=== PATIENT | female | born 1985 | race Asian ===

== ENCOUNTER 2019-06-05 06:51 | Emergency (ER) | payer OTHER ==
[~2019-06-05] VITALS: Ht 167.6 cm; Wt 68.0 kg
[2019-06-05 07:14] VITALS: TEMP 97.9
[2019-06-05 08:02] LABS: PLATELET COUNT 405 K/uL (152-353)
[2019-06-05 08:06] LABS: POTASSIUM 3.3 mmol/L (3.6-5.2)
[2019-06-05 09:00] VITALS: BP 148/94
== END 2019-06-05 09:02 | disposition home or self-care (01) ==
LOC: ED 06:51
PROVIDERS: Family Medicine
DX: D64.89 Other specified anemias (principal); J06.9 Acute upper respiratory infection, unspecified; F17.210 Nicotine dependence, cigarettes, uncomplicated
CPT/HCPCS: 80053; 81000; 81025; 85027; 87502; 87651; 99283